=== PATIENT | female | born 1935 | race Caucasian/White ===

== ENCOUNTER 2017-09-10 02:21 | Emergency (ER) | payer OTHER ==
[~2017-09-10] VITALS: Ht 149.9 cm; Wt 82.3 kg
[~2017-09-10 02:21] MED LIST: ACTOS15 MG PO; ALEVE LIQUID G220 MG PO; ASPIRIN E.C.81 M1 PO; CALTRATE 6001 TABLE2 PO; CLONIDINE HCL0.1 MG PO; CRESTOR10 MG PO; Cozaar PO; HYDROCHLOROTH12.5 M3 PO; Lopressor PO; Vicodin,Lortab 5/500 PO; ZESTRIL,PRINIVI40 M1 PO
[2017-09-10 03:24] LABS: BASOPHIL (%) 0.7 % (0-1); BASOPHIL COUNT 0.1 K/uL (0-0.1); EOSINOPHIL (%) 2.1 % (0-5); EOSINOPHIL COUNT 0.2 K/uL (0-0.3); HEMATOCRIT 33.2 % (36.0-46.0); HEMOGLOBIN 11.4 G/DL (11.9-15.5); IMMATURE GRANULOCYTE (%) 0.4 % (0.0-0.7); LYMPHOCYTE (%) 25.6 % (15-42); LYMPHOCYTE COUNT 1.9 K/uL (1.0-2.8); MCH 33.8 PG (29.0-34.0); MCHC 34.3 G/DL (30.0-36.0); MCV 98.5 FL (83-99); MONOCYTE (%) 11.1 % (3-12); MONOCYTE COUNT 0.8 K/uL (0-0.8); NEUTROPHIL (%) 60.1 % (45-76); NEUTROPHIL COUNT 4.5 K/uL (1.8-6.4); PLATELET COUNT 184 K/uL (156-360); RBC DIS.WIDTH-CV 14.2 % (11.8-14.6); RBC DIS.WIDTH-SD 51.6 % (39-53); RED BLOOD COUNT 3.37 M/uL (3.80-5.20); WHITE BLOOD COUNT 7.5 K/uL (4.1-10.2)
[2017-09-10 03:36] LABS: ALBUMIN 3.6 g/dL (3.2-4.8); CHLORIDE 105 mEq/L (99-109); SODIUM 139 mEq/L (136-147)
[2017-09-10 03:38] LABS: GLUCOSE 155 mg/dL (70-99); TOTAL PROTEIN 6.4 g/dL (6.4-8.3)
[2017-09-10 03:40] LABS: TOTAL BILIRUBIN 0.6 mg/dL (0.0-1.0)
[2017-09-10 03:42] LABS: ALKALINE PHOSPHATASE 61 IU/L (3-129); CREATININE 1.4 mg/dL (0.6-1.3); GFR ESTIMATE (CALCULATED) 38 mL/min/
[2017-09-10 03:43] LABS: UREA NITROGEN (BUN) 35 mg/dL (9-23)
[2017-09-10 03:44] LABS: AST (GOT) 24 IU/L (2-34); DIRECT BILIRUBIN 0.3 mg/dL (0.0-0.3)
[2017-09-10 03:45] LABS: ALT (GPT) 13 IU/L (3-49); LIPASE 39 U/L (1.0-51.0)
[2017-09-10 03:46] LABS: TROP-I INTERPRETATION NEGATIVE; TROPONIN-I < 0.01 ng/mL (0.0-0.30)
[2017-09-10 04:00] LABS: APPEARANCE SL.HAZY ((CLEAR)); BILIRUBIN NEGATIVE; BLOOD NEGATIVE; COLOR YELLOW ((YELLOW)); GLUCOSE (STRIP) NEGATIVE; KETONES NEGATIVE; LEUKOCYTES TRACE; NITRITE NEGATIVE; PROTEIN (STRIP) NEGATIVE; SPECIFIC GRAVITY 1.011 (1.000-1.030); UROBILINOGEN 0.2 MG/DL (0.2-1.0)
[2017-09-10 04:07] LABS: BACTERIA RARE /HPF; EPITHELIAL CELLS RARE /HPF; MUCUS TRACE /LPF; RED BLOOD CELLS 0-5 /HPF (0-5); UCUL ADDED? NO; WHITE BLOOD CELLS 0-5 /HPF (0-5)
[2017-09-10 05:47] LABS: TROP-I INTERPRETATION NEGATIVE; TROPONIN-I < 0.01 ng/mL (0.0-0.30)
[2017-09-10] MEDS ORDERED: CIPRO500 MG PO (06:40)
[2017-09-10 07:19] VITALS: BP 161/63
== END 2017-09-10 07:20 | disposition home or self-care (01) ==
LOC: EME 02:21
PROVIDERS: Emergency Medicine
DX: R60.0 Localized edema (principal); N39.0 Urinary tract infection, site not specified; R53.1 Weakness; I10 Essential (primary) hypertension; E11.9 Type 2 diabetes mellitus without complications; Z79.82 Long term (current) use of aspirin; Z79.891 Long term (current) use of opiate analgesic; Z88.0 Allergy status to penicillin; Z88.6 Allergy status to analgesic agent; Z88.5 Allergy status to narcotic agent
CPT/HCPCS: 70450; 71046; 80048; 80076; 81003; 83690; 83880; 84484; 85025; 93005; 99281; 99285

== ENCOUNTER 2017-09-17 14:42 | Emergency (ER) | payer OTHER ==
[~2017-09-17] VITALS: Ht 154.9 cm; Wt 81.1 kg
[~2017-09-17 14:42] MED LIST changes: +CIPRO500 MG PO
[2017-09-17] MEDS ORDERED: FLONASE16 G1 BOTH NARES (17:09)
[2017-09-17] MEDS ORDERED: VIBRAMYCIN100 MG PO (17:09)
[2017-09-17 17:23] VITALS: BP 168/71
== END 2017-09-17 17:24 | disposition home or self-care (01) ==
LOC: EME 14:42
DX: J32.9 Chronic sinusitis, unspecified (principal); E11.9 Type 2 diabetes mellitus without complications; I10 Essential (primary) hypertension; Z79.82 Long term (current) use of aspirin; Z88.0 Allergy status to penicillin; Z88.6 Allergy status to analgesic agent
CPT/HCPCS: 99281; 99283

== ENCOUNTER 2017-09-27 20:48 | Inpatient (IN) | payer OTHER ==
[~2017-09-27] VITALS: Ht 149.9 cm; Wt 80.5 kg
[~2017-09-27 20:48] MED LIST changes: +ADULT ASPIRIN R81 MG PO; -ASPIRIN E.C.81 M1 PO; +CALTRATE 600 +1 EAC1 PO; -CALTRATE 6001 TABLE2 PO; +COZAAR100 MG PO; -CRESTOR10 MG PO; +CRESTOR20 MG PO; -Cozaar PO; +FLONASE16 G1 BOTH NARES; -HYDROCHLOROTH12.5 M3 PO; +HYDROCHLOROTHIA25 MG PO; +LOPRESSOR100 M1 PO; -Lopressor PO; +VIBRAMYCIN100 MG PO
[2017-09-27 22:05] LABS: HEMATOCRIT 35.5 % (36.0-46.0); HEMOGLOBIN 12.6 G/DL (11.9-15.5); MCH 33.6 PG (29.0-34.0); MCHC 35.5 G/DL (30.0-36.0); MCV 94.7 FL (83-99); PLATELET COUNT 213 K/uL (156-360); RBC DIS.WIDTH-CV 13.8 % (11.8-14.6); RBC DIS.WIDTH-SD 48.3 % (39-53); RED BLOOD COUNT 3.75 M/uL (3.80-5.20); WHITE BLOOD COUNT 9.2 K/uL (4.1-10.2)
[2017-09-27 22:19] LABS: ALBUMIN 3.5 g/dL (3.2-4.8); CHLORIDE 99 mEq/L (99-109)
[2017-09-27 22:20] LABS: POTASSIUM 4.2 mEq/L (3.7-5.4); SODIUM 134 mEq/L (136-147)
[2017-09-27 22:22] LABS: GLUCOSE 132 mg/dL (70-99); TOTAL PROTEIN 6.4 g/dL (6.4-8.3)
[2017-09-27 22:24] LABS: TOTAL BILIRUBIN 1.2 mg/dL (0.0-1.0)
[2017-09-27 22:25] LABS: ALKALINE PHOSPHATASE 92 IU/L (3-129); CREATININE 2.8 mg/dL (0.6-1.3); GFR ESTIMATE (CALCULATED) 17 mL/min/
[2017-09-27 22:27] LABS: AST (GOT) 28 IU/L (2-34); UREA NITROGEN (BUN) 66 mg/dL (9-23)
[2017-09-27 22:28] LABS: ALT (GPT) 24 IU/L (3-49)
[2017-09-27 22:29] LABS: LIPASE 75 U/L (1.0-51.0)
[2017-09-27 22:32] LABS: TROP-I INTERPRETATION NEGATIVE; TROPONIN-I < 0.01 ng/mL (0.0-0.30)
[2017-09-27] MEDS ORDERED: CEFTIN500 MG PO (23:10)
[2017-09-27] MEDS ORDERED: TIZANIDINE HCL4 MG PO (23:11)
[2017-09-27] MEDS ORDERED: ALIGN4 MG PO (23:11)
[2017-09-27] MEDS ORDERED: DEXILANT60 MG PO (23:11)
[2017-09-28 00:20] LABS: APPEARANCE CLEAR ((CLEAR)); BILIRUBIN NEGATIVE; BLOOD SMALL; COLOR YELLOW ((YELLOW)); GLUCOSE (STRIP) NEGATIVE; KETONES NEGATIVE; LEUKOCYTES NEGATIVE; NITRITE NEGATIVE; PROTEIN (STRIP) NEGATIVE; SPECIFIC GRAVITY 1.008 (1.000-1.030); UROBILINOGEN 0.2 MG/DL (0.2-1.0)
[2017-09-28 00:36] LABS: BACTERIA NONE SEEN /HPF; EPITHELIAL CELLS RARE /HPF; HYALINE CASTS 0-5 /LPF; MUCUS NONE SEEN /LPF; RED BLOOD CELLS 0-5 /HPF (0-5); UCUL ADDED? YES
[2017-09-28 01:02] VITALS: BP 163/76
[2017-09-28 03:56] VITALS: BP 156/63
[2017-09-28 06:42] LABS: CHLORIDE 105 MEQ/L (99-109); CREATININE 2.4 MG/DL (0.6-1.3); GFR ESTIMATE (CALCULATED) 21 mL/min/; GLUCOSE 100 mg/dL (70-99); POTASSIUM 4.3 MEQ/L (3.7-5.4); SODIUM 137 MEQ/L (136-147); UREA NITROGEN (BUN) 56 mg/dL (9-23)
[2017-09-28 07:28] VITALS: BP 150/66
[2017-09-28 12:20] VITALS: BP 165/67
[2017-09-28 16:12] VITALS: BP 176/76
[2017-09-28 23:34] VITALS: BP 120/51
[2017-09-29 06:51] LABS: HEMOGLOBIN 9.4 G/DL (11.9-15.5); MCH 32.6 PG (29.0-34.0); MCHC 33.6 G/DL (30.0-36.0); MCV 97.2 FL (83-99); PLATELET COUNT 152 K/uL (156-360); RBC DIS.WIDTH-CV 14.4 % (11.8-14.6); RBC DIS.WIDTH-SD 51.3 % (39-53); RED BLOOD COUNT 2.88 M/uL (3.80-5.20); WHITE BLOOD COUNT 7.5 K/uL (4.1-10.2)
[2017-09-29 07:02] LABS: CHLORIDE 109 MEQ/L (99-109); CREATININE 2.2 MG/DL (0.6-1.3); GFR ESTIMATE (CALCULATED) 23 mL/min/; GLUCOSE 95 mg/dL (70-99); POTASSIUM 4.8 MEQ/L (3.7-5.4); SODIUM 138 MEQ/L (136-147); UREA NITROGEN (BUN) 51 mg/dL (9-23)
[2017-09-29 07:55] VITALS: BP 141/65
[2017-09-29 16:12] VITALS: BP 130/68
[2017-09-30 00:01] VITALS: BP 138/63
[2017-09-30 06:40] LABS: BASOPHIL (%) 0.4 % (0-1); EOSINOPHIL (%) 2.3 % (0-5); EOSINOPHIL COUNT 0.2 K/uL (0-0.3); HEMATOCRIT 28.8 % (36.0-46.0); HEMOGLOBIN 9.6 G/DL (11.9-15.5); IMMATURE GRANULOCYTE (%) 0.4 % (0.0-0.7); LYMPHOCYTE (%) 35.7 % (15-42); LYMPHOCYTE COUNT 2.6 K/uL (1.0-2.8); MCH 33.1 PG (29.0-34.0); MCHC 33.3 G/DL (30.0-36.0); MCV 99.3 FL (83-99); MONOCYTE (%) 11.6 % (3-12); MONOCYTE COUNT 0.9 K/uL (0-0.8); NEUTROPHIL (%) 49.6 % (45-76); NEUTROPHIL COUNT 3.7 K/uL (1.8-6.4); PLATELET COUNT 126 K/uL (156-360); RBC DIS.WIDTH-CV 14.6 % (11.8-14.6); WHITE BLOOD COUNT 7.4 K/uL (4.1-10.2)
[2017-09-30 07:01] LABS: CHLORIDE 109 MEQ/L (99-109); CREATININE 1.9 MG/DL (0.6-1.3); GFR ESTIMATE (CALCULATED) 27 mL/min/; GLUCOSE 112 mg/dL (70-99); POTASSIUM 4.5 MEQ/L (3.7-5.4); SODIUM 136 MEQ/L (136-147); UREA NITROGEN (BUN) 47 mg/dL (9-23)
[2017-09-30 08:59] VITALS: BP 137/63
[2017-09-30 16:20] VITALS: BP 141/63
[2017-09-30 23:55] VITALS: BP 139/63
[2017-10-01 07:24] VITALS: BP 150/66
[2017-10-01 07:25] LABS: BASOPHIL (%) 0.4 % (0-1); EOSINOPHIL (%) 3.3 % (0-5); EOSINOPHIL COUNT 0.2 K/uL (0-0.3); HEMATOCRIT 27.8 % (36.0-46.0); HEMOGLOBIN 9.1 G/DL (11.9-15.5); IMMATURE GRANULOCYTE (%) 0.3 % (0.0-0.7); LYMPHOCYTE COUNT 2.3 K/uL (1.0-2.8); MCH 32.3 PG (29.0-34.0); MCHC 32.7 G/DL (30.0-36.0); MCV 98.6 FL (83-99); MONOCYTE (%) 9.8 % (3-12); MONOCYTE COUNT 0.7 K/uL (0-0.8); NEUTROPHIL (%) 52.2 % (45-76); NEUTROPHIL COUNT 3.5 K/uL (1.8-6.4); PLATELET COUNT 118 K/uL (156-360); RBC DIS.WIDTH-CV 14.6 % (11.8-14.6); RBC DIS.WIDTH-SD 53.4 % (39-53); RED BLOOD COUNT 2.82 M/uL (3.80-5.20); WHITE BLOOD COUNT 6.8 K/uL (4.1-10.2)
[2017-10-01 07:42] LABS: CHLORIDE 113 MEQ/L (99-109); CREATININE 1.6 MG/DL (0.6-1.3); GFR ESTIMATE (CALCULATED) 33 mL/min/; GLUCOSE 113 mg/dL (70-99); POTASSIUM 4.8 MEQ/L (3.7-5.4); SODIUM 139 MEQ/L (136-147); UREA NITROGEN (BUN) 40 mg/dL (9-23)
[2017-10-01] MEDS ORDERED: PANTOPRAZOLE SO40 MG PO (14:12)
== END 2017-10-01 15:14 | disposition home health service (06) | DRG 683 ==
LOC: EME 20:48 → 2EAST 23:45 → EDOF 23:45 → 2EAST 23:45 → ENRESERV 09-28 00:06 → 2EAST 09-28 00:43
PROVIDERS: Emergency Medicine; Family Medicine
DX: N17.9 Acute kidney failure, unspecified (principal); E86.0 Dehydration; T50.2X5A Adverse effect of carbonic-anhydrase inhibitors, benzothiadiazides and other diuretics, initial encounter; R10.13 Epigastric pain; R74.8 Abnormal levels of other serum enzymes; K86.2 Cyst of pancreas; I13.0 Hypertensive heart and chronic kidney disease with heart failure and stage 1 through stage 4 chronic kidney disease, or unspecified chronic kidney disease; I50.9 Heart failure, unspecified; E11.22 Type 2 diabetes mellitus with diabetic chronic kidney disease; N18.2 Chronic kidney disease, stage 2 (mild); E11.51 Type 2 diabetes mellitus with diabetic peripheral angiopathy without gangrene; E78.1 Pure hyperglyceridemia; E78.5 Hyperlipidemia, unspecified; I25.10 Atherosclerotic heart disease of native coronary artery without angina pectoris; I65.23 Occlusion and stenosis of bilateral carotid arteries; M85.80 Other specified disorders of bone density and structure, unspecified site; J32.9 Chronic sinusitis, unspecified; G89.29 Other chronic pain; M54.5 Low back pain; Z79.82 Long term (current) use of aspirin; Z88.0 Allergy status to penicillin; Z88.6 Allergy status to analgesic agent; Z88.5 Allergy status to narcotic agent
CPT/HCPCS: 74176; 74181; 80048; 80053; 81003; 83690; 84484; 85025; 85027; 87086; 87502; 93005; 99281; 99285; J1644; J2405; J7030

== ENCOUNTER → 2017-11-07 | Outpatient (CLI) | payer OTHER ==
[~2017-11-07] VITALS: Ht 149.9 cm; Wt 77.1 kg
[~2017-11-07] MED LIST changes: +ALIGN4 MG PO; +CEFTIN500 MG PO; +DEXILANT60 MG PO; +PANTOPRAZOLE SO40 MG PO; +TIZANIDINE HCL4 MG PO; +ZESTRIL40 MG PO
== END | disposition home or self-care (01) ==
LOC: AMB 12:42
PROVIDERS: Internal Medicine Gastroenterology
PROC: 0DJ08ZZ Inspection of Upper Intestinal Tract, Via Natural or Artificial Opening Endoscopic (ICD-10-PCS; principal; 2017-11-07)
DX: K86.89 Other specified diseases of pancreas (principal); K86.2 Cyst of pancreas; R10.9 Unspecified abdominal pain
CPT/HCPCS: 82948; 93005; J0330; J2405; J2765; J3010